=== PATIENT | female | born 1990 | race Caucasian/White ===

== ENCOUNTER 2016-10-19 22:19 | Emergency (ER) | payer BC ==
[2016-10-19 22:31] VITALS: BMI 35.7
--- NOTE | 2016-10-19 22:57 | DR.GENAD ---
HPI - PCP Primary Care Physician: Xiomara Lauren - HPI Comment HPI Comment: SEE IN [facility] ED. US DONE AND FELT PAIN DUE TO PUD OR GB. GIVEN MEDS WHICH IS AT THE [facility]. PAIN IS WORSE TONIGHT. NO FEVER. NAUSEATED BUT NOT ACTIVELY VOMITING. - Complaint/Symptoms Chief Complaint Doctors Comments: ABDOMINAL PAIN TIMES FEW DAYS. Chief Complaint:: " Lst night was in ER in [place] they tols me it could be gallbladder attacks. Pressure is relieved when im sitting up feels like someone stabbing me in upper part of my stomach and side." - Nurses notes reviewed Nurses Notes Review: Yes - Source History Provided: Patient - Mode of Arrival Mode of Arrival: Ambulatory - Timing Onset of Chief Complaint: 10/18/16 Came on: Suddenly - Duration Duration: Constant Duration: Days - Severity Severity: Moderate PMH - PMH Past Medical History: No Past Surgical History: Yes Surgical History: Ortho Surgery - Family History History of Family Medical Conditions: No - Social History Alcohol Use: None Do you use any recreational Drugs:: No Lives With: Family Lives Where: Home - infectious screening Have you traveled outside the country in the last 6 months?: No ROS - Review of Systems Constitutional: No Symptoms Reported Eyes: No Symptoms Reported ENTM: No Symptoms Reported Respiratoy: No Symptoms Reported Cardiovascular: No Symptoms Reported Gastrointestinal/Abdominal: Abdominal Pain, Nausea Genitourinary: No Symptoms Reported Neurological: No Symptoms Reported Musculoskeletal: No Symptoms Reported Integumentary: No Symptoms Reported Endocrine: No Symptoms Reported All Other Systems: Reviewed and Negative PE - Vital Signs Vitals: Temperature 98 F Pulse Rate 84 Respiratory Rate 18 O2 Sat by Pulse Oximetry 98 - General Limitations: No Limitations General Appearance: Alert - Head Head Exam: Normal Inspection - Eyes Eye exam: Normal Appearance - ENT ENT Exam: Normal External Ear Exam External Ear Exam: Normal External Inspection TM/Canal Exam: Bilateral Normal Mouth Exam: Normal Inspection Throat Exam: Normal Inspection - Neck Neck Exam: Normal Inspection, Trachea Midline - Chest Chest Inspection: Symmetric Chest Wall Rise - Respiratory Respiratory Exam: Normal Lung Sounds Bilat Respiratory Exam: Bilateral Clear to Auscultation - Cardiovascular Cardiovascular Exam: Regular Rate, Normal Rhythm, Normal Heart Sounds - Abdominal Exam Abdominal Exam: Normal Bowel Sounds, Soft, Tenderness Abdominal Tenderness: RUQ, Epigastrium, Moderate - Extremities Extremities Exam: Normal Inspection - Back Back Exam: Normal Inspection - Neurologic Neurological Exam: Alert, Oriented X3 - Skin Skin Exam: Normal Color MDM - Additional Information Additional Information Obtained From: Family - Differential Diagnosis Differential Diagnosis: ABDOMINAL PAIN, GASTRITIS, GB DISEASE, PACREASTITIS Course - Treatment Treatment: SEE ORDERS. - Education/Counseling Education/Counseling: Patient, Family, Education Educated On: Diagnosis, Needs for Follow Up ROR - Labs Reviewed Laboratory Results Reviewed?: Yes Result Diagrams: 10/19/16 23:20 10/19/16 23:20 Laboratory: WBC 7.2 X10^3/uL (3.6-10.0) 10/19/16 23:20 RBC 4.46 X10^6/uL (3.5-5.4) 10/19/16 23:20 Hgb 13.2 g/dL (12.0-16.0) 10/19/16 23:20 Hct 39.8 % (36.0-47.0) 10/19/16 23:20 MCV 89.2 fL (80.0-100.0) 10/19/16 23:20 MCH 29.6 pg (27.0-34.0) 10/19/16 23:20 MCHC 33.2 g/dL (33.0-35.0) 10/19/16 23:20 RDW 13.5 % (11.6-16.5) 10/19/16 23:20 Plt Count 268 X10^3/uL (150.0-450.0) 10/19/16 23:20 MPV 8.1 fL (7.4-11.0) 10/19/16 23:20 Neut % 63.1 % (42.0-75.0) 10/19/16 23:20 Lymph % 26.8 % (21.0-51.0) 10/19/16 23:20 [place] % 7.1 % (0.0-13.0) 10/19/16 23:20 Eos % 2.4 % (0.9-2.9) 10/19/16 23:20 Baso % 0.6 % (0.2-1.0) 10/19/16 23:20 Neut # 4.5 x10^3/uL (2.2-4.8) 10/19/16 23:20 Lymph # 1.9 X10^3/uL (1.3-2.9) 10/19/16 23:20 [place] # 0.5 x10^3/uL (0.3-0.8) 10/19/16 23:20 Eos # 0.2 x10^3/uL (0.0-0.2) 10/19/16 23:20 Baso # 0.0 X10^3/uL (0.0-0.1) 10/19/16 23:20 Absolute Nucleated RBC 0.1 /100WBC 10/19/16 23:20 Sodium 141 mmol/L (136-145) 10/19/16 23:20 Corrected Sodium TNP 10/19/16 23:20 Potassium 4.3 mmol/L (3.5-5.1) 10/19/16 23:20 Chloride 104 mmol/L (98-107) 10/19/16 23:20 Carbon Dioxide 30.0 mmol/L (21-32) 10/19/16 23:20 BUN 15 mg/dL (7-18) 10/19/16 23:20 Creatinine 0.98 mg/dL (0.55-1.02) 10/19/16 23:20 Est GFR (MDRD) Af Amer > 60 (>60) 10/19/16 23:20 Est GFR (MDRD) Non-Af > 60 (>60) 10/19/16 23:20 Glucose 95 mg/dL (65-99) 10/19/16 23:20 Calcium 8.8 mg/dL (8.5-10.1) 10/19/16 23:20 Corrected Calcium TNP 10/19/16 23:20 Total Bilirubin 0.30 mg/dL (0.2-1.0) 10/19/16 23:20 AST 15 Units/L (15-37) 10/19/16 23:20 ALT 20 Units/L (12-78) 10/19/16 23:20 Alkaline Phosphatase 75 Units/L (46-116) 10/19/16 23:20 Total Protein 7.6 g/dL (6.4-8.2) 10/19/16 23:20 Albumin 3.7 g/dL (3.4-5.0) 10/19/16 23:20 Globulin 3.9 g/dL (2.5-4.5) 10/19/16 23:20 Albumin/Globulin Ratio 0.9 Ratio (1.1-2.1) L 10/19/16 23:20 Amylase 32 Units/L (25-115) 10/19/16 23:20 Lipase 75 Units/L (73-393) 10/19/16 23:20 Specimen Type Clean catch urine 10/19/16 23:38 Urine Color Yellow (YELLOW) 10/19/16 23:38 Urine Appearance Cloudy (CLEAR) 10/19/16 23:38 Urine pH 6.0 (5.0 - 8.0) 10/19/16 23:38 Ur Specific [place] 1.020 (1.000-1.030) 10/19/16 23:38 Urine Protein Negative (NEGATIVE) 10/19/16 23:38 Urine Glucose (UA) Negative (NEGATIVE) 10/19/16 23:38 Urine Ketones Negative (NEGATIVE) 10/19/16 23:38 Urine Occult Blood 2+ (NEGATIVE) 10/19/16 23:38 Urine Nitrite Negative (NEGATIVE) 10/19/16 23:38 Urine Bilirubin Negative (NEGATIVE) 10/19/16 23:38 Urine Urobilinogen Normal (NORMAL) 10/19/16 23:38 Ur Leukocyte Esterase 2+ (NEGATIVE) 10/19/16 23:38 Urine RBC 0-3 /HPF (NEGATIVE) 10/19/16 23:38 Urine WBC 8-10 /HPF (NEGATIVE) 10/19/16 23:38 Ur Squamous Epith Cells Moderate /HPF (NEGATIVE) 10/19/16 23:38 Urine Bacteria 1+ /HPF (NEGATIVE) 10/19/16 23:38 Urine Mucus Few /HPF (NEGATIVE) 10/19/16 23:38 Ur Culture Indicated? Yes/culture set up 10/19/16 23:38 H. pylori IgG Antibody Negative (NEGATIVE) 10/19/16 23:20 - Diagnosis Discharge Problem: Abdominal pain Qualifiers: Abdominal location: generalized Qualified Code(s): R10.84 - Generalized abdominal pain - Discharge Plan Disposition: 01 HOME, SELF-CARE Condition: Stable Prescriptions: Gi Cocktail [LEVSIN/Maalox/Lidoc Visc (GI COCKTAIL) *] 30 ml PO TID #180 ml Ranitidine HCl [ZANTAC TAB 150 MG *] 150 mg PO BID #60 tab - Follow ups/Referrals Follow ups/Referrals: XIOMARA LAUREN [Primary Care Provider] - 10/21/16 - Instructions Instructions: Abdominal Pain, Adult, [id number] Additional Instructions: RETURN TO ED IF WORSE.
[2016-10-19] MEDS ORDERED: LEVSIN/MAALOX/LIDOC VISC PO ONE (23:15)
[2016-10-19] MEDS ORDERED: LEVSIN/MAALOX/LIDOC VISC ONE (23:26)
[2016-10-19] MEDS ORDERED: PEPCID TAB 20 MG ONE (23:27)
[2016-10-19 23:29] LABS: BASOPHILS % (AUTO) 0.6 % (0.2-1.0); EOSINOPHILS # (AUTO) 0.2 x10^3/uL (0.0-0.2); EOSINOPHILS % (AUTO) 2.4 % (0.9-2.9); HEMATOCRIT 39.8 % (36.0-47.0); HEMOGLOBIN 13.2 g/dL (12.0-16.0); LYMPHOCYTES # (AUTO) 1.9 X10^3/uL (1.3-2.9); LYMPHOCYTES % (AUTO) 26.8 % (21.0-51.0); MEAN CORPUSCULAR HEMOGLOBIN 29.6 pg (27.0-34.0); MEAN CORPUSCULAR HGB CONC 33.2 g/dL (33.0-35.0); MEAN CORPUSCULAR VOLUME 89.2 fL (80.0-100.0); MEAN PLATELET VOLUME 8.1 fL (7.4-11.0); MONOCYTES # (AUTO) 0.5 x10^3/uL (0.3-0.8); MONOCYTES % (AUTO) 7.1 % (0.0-13.0); NEUTROPHILS # (AUTO) 4.5 x10^3/uL (2.2-4.8); NEUTROPHILS % (AUTO) 63.1 % (42.0-75.0); PLATELET COUNT 268 X10^3/uL (150.0-450.0); RED BLOOD COUNT 4.46 X10^6/uL (3.5-5.4); RED CELL DISTRIBUTION WIDTH 13.5 % (11.6-16.5); WHITE BLOOD COUNT 7.2 X10^3/uL (3.6-10.0)
[2016-10-19 23:40] LABS: ALANINE AMINOTRANSFERASE 20 Units/L (12-78); ALBUMIN 3.7 g/dL (3.4-5.0); ALKALINE PHOSPHATASE 75 Units/L (46-116); AMYLASE 32 Units/L (25-115); ASPARTATE AMINO TRANSFERASE 15 Units/L (15-37); BLOOD UREA NITROGEN 15 mg/dL (7-18); CALCIUM 8.8 mg/dL (8.5-10.1); CHLORIDE 104 mmol/L (98-107); CREATININE 0.98 mg/dL (0.55-1.02); GLUCOSE 95 mg/dL (65-99); LIPASE 75 Units/L (73-393); SODIUM 141 mmol/L (136-145); TOTAL PROTEIN 7.6 g/dL (6.4-8.2); eGFR BLACK RACES > 60 (>60); eGFR NON BLACK RACES > 60 (>60)
[2016-10-19] MEDS ORDERED: PEPCID TAB 20 MG PO SCH (23:45)
[2016-10-19 23:54] LABS: BILIRUBIN,URINE NEGATIVE (NEGATIVE); BLOOD/HEMOGLOBIN,URINE 2+ (NEGATIVE); GLUCOSE, URINE NEGATIVE (NEGATIVE); KETONES,URINE NEGATIVE (NEGATIVE); LEUKOCYTE ESTERASE ,URINE 2+ (NEGATIVE); NITRITES,URINE NEGATIVE (NEGATIVE); PROTEIN,URINE NEGATIVE (NEGATIVE); UROBILINOGEN,URINE NORMAL (NORMAL)
[2016-10-20 00:02] LABS: APPEARANCE,URINE CLOUDY (CLEAR); BACTERIA,URINE 1+ /HPF (NEGATIVE); COLOR,URINE YELLOW (YELLOW); MUCUS,URINE FEW /HPF (NEGATIVE); RBC,URINE 0-3 /HPF (NEGATIVE); SQUAMOUS EPITHELIAL CELL,UR MODERATE /HPF (NEGATIVE)
== END 2016-10-20 01:15 | disposition home or self-care (01) ==
LOC: EDBD 22:19 → EDSEX 22:19 → ER 22:40
DX: R10.84 Generalized abdominal pain (principal)
CPT/HCPCS: 36415; 80053; 81001; 82150; 83690; 85025; 86677; 87086; 99283